=== PATIENT | female | born 1960 | race Caucasian/White ===

== ENCOUNTER 2018-06-27 13:16 | Emergency (ER) | END 2018-06-27 15:12 | disposition home or self-care (01) ==

== ENCOUNTER 2019-05-14 00:58 | Emergency (ER) | payer SELFPAY ==
[~2019-05-14 00:58] MED LIST: CEPH-443 PO; CLOT30CR24 TOP
[2019-05-14 01:07] VITALS: BP 124/91; PULSE 77
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
[2019-05-14] MEDS ORDERED: ONDANSETRON 4 MG INJ IV ONE (01:30)
[2019-05-14] MEDS ORDERED: morphine 4 MG/ML VIAL IV ONE (01:30)
[2019-05-14] MEDS ORDERED: CEFAZOLIN 2 GM/50 ML (PMX) 50 ML IVPB ONE (01:30)
== END 2019-05-14 06:04 | disposition short-term general hospital (02) ==
LOC: E/R 00:58
DX: S31.604A Unspecified open wound of abdominal wall, left lower quadrant with penetration into peritoneal cavity, initial encounter (principal); W18.39XA Other fall on same level, initial encounter; Y92.9 Unspecified place or not applicable
CPT/HCPCS: 36415; 80048; 80307; 85025; 85610; 85730; 86850; 86900; 86901; 96374; 96375; 99285; J0690; J2270; J2405